=== PATIENT | female | born 1990 | race Caucasian/White ===

== ENCOUNTER 2021-08-01 16:09 | Emergency (ER) | payer OTHER ==
[~2021-08-01] VITALS: Ht 154.9 cm; Wt 49.9 kg
[2021-08-01 16:40] VITALS: BP 110/78
--- NOTE | 2021-08-01 16:44 | NUR ---
PT TAKEN TO ER BED 3.
--- NOTE | 2021-08-01 16:52 | NUR ---
DR. FRITZ AT PT BEDSIDE FOR FURTHER EVALUATION.
--- NOTE | 2021-08-01 16:53 | NUR ---
30 Y/O FEMALE C/O SORE THROAT, BODY ACHES, NON-PRODUCTIVE COUGH X 4 DAYS. PT STATES +N/V/D, +FEVER/CHILLS. ABD IS SOFT, LAT, NON-TENDER, BOWEL SOUNDS PRESENT X4, LAST BM 08/01/21. PMH: ASTHMA NKA
[2021-08-01] MEDS ORDERED: BENZONATATE 100 MG CAPLF PO SCH (16:55)
[2021-08-01] MEDS ORDERED: NACL 0.9% 1,000 ML IV ONE ×3 (16:55→19:00)
[2021-08-01] MEDS ORDERED: ALBUTEROL SULFATE/IPRATROPIU 3 ML SOL IH ONE ×2 (16:55→18:06)
[2021-08-01] MEDS ORDERED: DEXAMETHASONE 10 MG/ML VIAL IVP ONE (16:55)
[2021-08-01] MEDS ORDERED: ACETAMINOPHEN 325 MG TAB PO ONE (16:55)
[2021-08-01] MEDS ORDERED: KETOROLAC 15 MG/ML VIAL IVP ONE (16:55)
--- NOTE | 2021-08-01 17:17 | NUR ---
per ermd 12 lead was done on pt and came back sinus tachycardia at 120 hr.
--- NOTE | 2021-08-01 17:22 | NUR ---
IV ESTABLISHED TO LEFT AC 20G, GOOD BLOOD RETURN. BLOOD COLLECTED, WALKED TO LAB.
[2021-08-01] MEDS ORDERED: cefTRIAXone 1,000 MG VIAL ONE (17:37)
--- NOTE | 2021-08-01 17:37 | NUR ---
COLLECTED TEE EARLY& Lazaro WALKED TO LAB.
[2021-08-01 17:45] LABS: BASOPHILS % (AUTO) 0.3 % (0.0-2.0); EOSINOPHILS # (AUTO) 0.2 K/uL (0-0.4); EOSINOPHILS % (AUTO) 1.8 % (0.0-4.0); HEMATOCRIT 39.5 % (36-48); HEMOGLOBIN 13.1 g/dL (12.0-16.0); LYMPHOCYTES # (AUTO) 1.2 K/uL (2.5-16.5); LYMPHOCYTES % (AUTO) 8.7 % (20.5-51.1); MEAN CORPUSCULAR HEMOGLOBIN 28 pg (27-31); MEAN CORPUSCULAR HGB CONC 33 g/dL (33-37); MEAN CORPUSCULAR VOLUME 85.3 fL (80-94); MONOCYTES # (AUTO) 1.1 K/uL (0.8-1.0); MONOCYTES % (AUTO) 8.4 % (1.7-9.3); NEUTROPHILS # (AUTO) 10.8 K/uL (1.8-7.7); NEUTROPHILS % (AUTO) 80.8 % (42.2-75.2); PLATELET COUNT (AUTO) 354 K/uL (140-450); RED BLOOD CELL COUNT(AUTO) 4.63 MIL/uL (4.20-5.40); WHITE BLOOD COUNT (AUTO) 13.3 K/uL (4.8-10.8)
--- NOTE | 2021-08-01 18:19 | NUR ---
PT RESTING IN BED, HOB ELEVATED, VISIBLE EQUAL RISE AND FALL OF CHEST, VSS, WILL CONTINUE TO MONITOR;.
[2021-08-01 18:20] LABS: BILIRUBIN,URINE NEGATIVE (NEGATIVE); BLOOD, URINE NEGATIVE (NEGATIVE); COLOR,URINE YELLOW (YELLOW); LEUKOCYTE ESTERASE ,URINE 2+ (NEGATIVE); NITRITE, URINE POSITIVE (NEGATIVE); PH,URINE 5.5 (5.0-9.0); UGLUCOSE NEGATIVE (NEGATIVE)
[2021-08-01 18:30] LABS: APPEARANCE,URINE CLOUDY (CLEAR)
--- NOTE | 2021-08-01 18:30 | NUR ---
DR. FRITZ AT PT BEDSIDE FOR RE-EVALUATION.
[2021-08-01 18:34] LABS: ALBUMIN 3.2 g/dL (3.4-5.0); ANION GAP 13.3 (8-16); CREATININE 0.6 mg/dL (0.6-1.3); POTASSIUM 3.3 mmol/L (3.5-5.1); TOTAL BILIRUBIN 0.2 mg/dL (0.0-1.0)
[2021-08-01] MEDS ORDERED: LORazepam 2 MG/ML VIAL IVP ONE (19:00)
[2021-08-01] MEDS ORDERED: BENZ-196 PO (19:04)
[2021-08-01] MEDS ORDERED: PRED20TA5 PO (19:04)
[2021-08-01] MEDS ORDERED: AZIT250T4 PO (19:04)
[2021-08-01] MEDS ORDERED: ALBU0.0912 IH (19:04)
[2021-08-01] MEDS ORDERED: AMOX-1000 PO (19:04)
--- NOTE | 2021-08-01 19:21 | NUR ---
GAVE REPORT TO MASOOD MEJIA. TRANSFER OF CARE AT THIS TIME.
--- NOTE | 2021-08-01 19:30 | NUR ---
GAVE REPORT TO MASOOD AHUJA. TRANSFER OF CARE AT THIS TIME.
--- NOTE | 2021-08-01 19:35 | NUR ---
RECIEVED REPORT AND CONTINUITY OF CARE FROM DAY SHIFT RN, PT LYING IN BED W/ EYES CLOSED, RR EVEN AND UNLABORED, VSS, NO SIGNS OF ACUTE DISTRESS NOTED
--- NOTE | 2021-08-01 21:32 | NUR ---
CONTACTED PT MOTHER ED IN REGARDS TO PT DISCHARGE AND TO BE PICKED UP FROM ED
[2021-08-01 22:53] VITALS: BP 103/61
--- NOTE | 2021-08-01 22:58 | NUR ---
Patient discharged with v/s stable. Written and verbal after care instructions given and explained. Patient alert, oriented and verbalized understanding of instructions. Ambulatory with steady gait. All questions addressed prior to discharge. ID band removed. Patient advised to follow up with PMD. Rx of ALBUTEROL SULFATE, AMOXICILLIN, AZITHROMYCIN, ZAITHROMYCIN, BENZONATATE AND PREDNISONE given. Patient educated on indication of medication including possible reaction and side effects. Opportunity to ask questions provided and answered.
--- NOTE | 2021-08-04 10:22 | NUR ---
LATE ENTRY- NORMAL SALINE 0.9% DISCONTINUED AT [id number].
== END 2021-08-01 22:52 | disposition home or self-care (01) ==
LOC: MED 16:09
DX: J18.9 Pneumonia, unspecified organism (principal); Z20.822 Contact with and (suspected) exposure to COVID-19; N39.0 Urinary tract infection, site not specified; N12 Tubulo-interstitial nephritis, not specified as acute or chronic; F17.200 Nicotine dependence, unspecified, uncomplicated; J45.909 Unspecified asthma, uncomplicated; F15.90 Other stimulant use, unspecified, uncomplicated; Z79.899 Other long term (current) drug therapy
CPT/HCPCS: 36415; 71045; 80053; 81001; 83605; 85025; 87040; 87086; 87426; 87804; 93005; 94640; 94760; 96361; 96365; 96375; 99285; J0696; J1100; J1885; J2060; J7030; Q0092; U0003